=== PATIENT | male | born 1970 | race Caucasian/White ===

== ENCOUNTER 2024-05-28 07:38 | Day surgery (SDC) | payer OTHER ==
[2024-05-27] MEDS: BALANCED SALT 15 ML OPHTHALMIC IRRIG.SOLN ONE (08:26)
[~2024-05-28] VITALS: Ht 177.8 cm; Wt 97.7 kg
[~2024-05-28 07:38] MED LIST: CYCLOPENTOLATE HCL 1% 2 ML OPHTHALMIC SOLUTION ONE; DEXAMETHASONE SOD PHOS 4 MG/ML VIAL ONE; EPINEPHrine 1:1,000 [1 MG/ML] VIAL ONE; FentaNYL CITRATE PF 100 MCG/2 ML VIAL ONE; KETOROLAC TROMETHAMINE 0.5% 5 ML OPHTHALMIC SOLUTION ONE; LIDOCAINE/PF 1% 2 ML VIAL ONE; MIDAZOLAM HCL 2 MG/2 ML VIAL ONE; MOXIFLOXACIN HCL 0.5% 3 ML OPHTHALMIC SOLUTION ONE; NEOMYCIN/POLYMYXIN B/DEXAMETH 3.5 GM OPHTHALMIC OINTMENT ONE; ONDANSETRON HCL 4 MG/2 ML VIAL ONE; PHENYLEPHRINE HCL 2.5% 2 ML OPHTHALMIC SOLUTION ONE; POVIDONE-IODINE 5% 30 ML OPHTHALMIC SOLUTION ONE; PROPARACAINE HCL 0.5% 15 ML OPHTHALMIC SOLUTION ONE; PROPOFOL 1% 20 ML VIAL IVP ONE; RINGERS SOLUTION,LACTATED 500 ML IV ONE; SUGAMMADEX SODIUM 200 MG/2 ML VIAL IVP ONE; TETRACAINE HCL/PF 0.5% 4 ML OPHTHALMIC SOLUTION ONE; TROPICAMIDE 1% 2 ML OPHTHALMIC SOLUTION ONE
[2024-05-28] MEDS ORDERED: POVIDONE-IODINE 5% 30 ML OPHTHALMIC SOLUTION OD ONE (07:39)
[2024-05-28] MEDS ORDERED: BALANCED SALT 15 ML OPHTHALMIC IRRIG.SOLN OS ONE (07:39)
[2024-05-28] MEDS ORDERED: NEOMYCIN/POLYMYXIN B/DEXAMETH 3.5 GM OPHTHALMIC OINTMENT OD ONE (07:39)
[2024-05-28] MEDS ORDERED: TETRACAINE HCL/PF 0.5% 4 ML OPHTHALMIC SOLUTION OD ONE (07:39)
[2024-05-28] MEDS ORDERED: CHONDR SULF A SOD/HYALURONATE 1.05 ML KIT IO ONE (07:39)
[2024-05-28] MEDS ORDERED: PrednisoLONE ACETATE 1% 5 ML OPHTHALMIC SUSPENSION ONE (07:48)
[2024-05-28] MEDS: PROPARACAINE HCL 0.5% 15 ML OPHTHALMIC SOLUTION OD ONE (08:26)
[2024-05-28] MEDS: CYCLOPENTOLATE HCL 1% 2 ML OPHTHALMIC SOLUTION OD SCH (08:27)
[2024-05-28] MEDS: TROPICAMIDE 1% 2 ML OPHTHALMIC SOLUTION OD SCH (08:27)
[2024-05-28] MEDS: KETOROLAC TROMETHAMINE 0.5% 5 ML OPHTHALMIC SOLUTION OD SCH (08:27)
[2024-05-28] MEDS: PHENYLEPHRINE HCL 2.5% 2 ML OPHTHALMIC SOLUTION OD SCH (08:27)
[2024-05-28] MEDS: TETRACAINE HCL/PF 0.5% 4 ML OPHTHALMIC SOLUTION OD SCH (08:28)
[2024-05-28] MEDS: MOXIFLOXACIN HCL 0.5% 3 ML OPHTHALMIC SOLUTION OD SCH (08:28)
[2024-05-28] MEDS: RINGERS SOLUTION,LACTATED 500 ML IV ONE (09:08)
== END 2024-05-28 12:50 | disposition home or self-care (01) ==
LOC: SURGERY 07:38
PROVIDERS: ATTEND Ophthalmology
DX: H25.11 Age-related nuclear cataract, right eye (principal); R94.31 Abnormal electrocardiogram [ECG] [EKG]; Z98.818 Other dental procedure status; Z88.0 Allergy status to penicillin; Z87.891 Personal history of nicotine dependence; Z88.5 Allergy status to narcotic agent
CPT/HCPCS: 93005; 66982; J7321; J2704; J1100; J0171; J3010; J3490 ×2; J2250; J2405; J7120; V2632

== ENCOUNTER 2025-03-16 06:43 | Day surgery (SDC) | payer OTHER ==
[~2025-03-16] VITALS: Ht 177.8 cm; Wt 100.0 kg
[~2025-03-16 06:43] MED LIST changes: -DEXAMETHASONE SOD PHOS 4 MG/ML VIAL ONE; -EPINEPHrine 1:1,000 [1 MG/ML] VIAL ONE; -FentaNYL CITRATE PF 100 MCG/2 ML VIAL ONE; -LIDOCAINE/PF 1% 2 ML VIAL ONE; -MIDAZOLAM HCL 2 MG/2 ML VIAL ONE; -NEOMYCIN/POLYMYXIN B/DEXAMETH 3.5 GM OPHTHALMIC OINTMENT ONE; -ONDANSETRON HCL 4 MG/2 ML VIAL ONE; -POVIDONE-IODINE 5% 30 ML OPHTHALMIC SOLUTION ONE; -PROPARACAINE HCL 0.5% 15 ML OPHTHALMIC SOLUTION ONE; -PROPOFOL 1% 20 ML VIAL IVP ONE; +PrednisoLONE ACETATE 1% 5 ML OPHTHALMIC SUSPENSION ONE; -SUGAMMADEX SODIUM 200 MG/2 ML VIAL IVP ONE
[2025-03-16] MEDS ORDERED: DiphenhydrAMINE HCL 50 MG/ML VIAL IVP ONE (06:44)
[2025-03-16] MEDS: PHENYLEPHRINE HCL 2.5% 2 ML OPHTHALMIC SOLUTION OS SCH (07:11)
[2025-03-16] MEDS: TETRACAINE HCL/PF 0.5% 4 ML OPHTHALMIC SOLUTION OS ONE (07:12)
[2025-03-16] MEDS: PROPARACAINE HCL 0.5% 15 ML OPHTHALMIC SOLUTION OS ONE (07:12)
[2025-03-16] MEDS: TROPICAMIDE 1% 2 ML OPHTHALMIC SOLUTION OS SCH (07:12)
[2025-03-16] MEDS: CYCLOPENTOLATE HCL 1% 2 ML OPHTHALMIC SOLUTION OS SCH (07:12)
[2025-03-16] MEDS: MOXIFLOXACIN HCL 0.5% 3 ML OPHTHALMIC SOLUTION OS SCH (07:12)
[2025-03-16] MEDS: KETOROLAC TROMETHAMINE 0.5% 5 ML OPHTHALMIC SOLUTION OS SCH (07:12)
[2025-03-16] MEDS: RINGERS SOLUTION,LACTATED 500 ML IV ONE (07:13)
[2025-03-16] MEDS: TETRACAINE HCL/PF 0.5% 4 ML OPHTHALMIC SOLUTION OS SCH (07:23)
[2025-03-16] MEDS: POVIDONE-IODINE 5% 30 ML OPHTHALMIC SOLUTION ONE (08:45)
[2025-03-16] MEDS: BALANCED SALT 15 ML OPHTHALMIC IRRIG.SOLN ONE (08:45)
[2025-03-16] MEDS: EPINEPHrine 1:1,000 [1 MG/ML] VIAL ONE (08:45)
[2025-03-16] MEDS: LIDOCAINE/PF 1% 2 ML VIAL ONE (08:45)
[2025-03-16] MEDS: NEOMYCIN/POLYMYXIN B/DEXAMETH 3.5 GM OPHTHALMIC OINTMENT ONE (09:07)
[2025-03-16] MEDS ORDERED: MIDAZOLAM HCL 2 MG/2 ML VIAL ONE (12:00)
[2025-03-16] MEDS ORDERED: FentaNYL CITRATE PF 100 MCG/2 ML VIAL ONE (12:00)
== END 2025-03-16 10:25 | disposition home or self-care (01) ==
LOC: SURGERY 06:43
PROVIDERS: ATTEND Ophthalmology
DX: H25.12 Age-related nuclear cataract, left eye (principal); Z88.0 Allergy status to penicillin; Z88.6 Allergy status to analgesic agent; Z79.899 Other long term (current) drug therapy; Z98.49 Cataract extraction status, unspecified eye
CPT/HCPCS: 66982; 93005; J1200; J0171; J3010; J3490; J2250; J7120; V2632